=== PATIENT | male | born 1975 | race Caucasian/White ===

== ENCOUNTER 2024-06-27 11:52 | Emergency (ER) | payer SELFPAY ==
[2024-06-27 12:00] VITALS: BP 101/64; PULSE 97; RESP 20; TEMP 36.8; O2SAT 97; BMI 23.6
--- NOTE | 2024-06-27 12:06 | ED_ITS ---
HPI - Alcohol 2 General: Chief Complaint: Alcohol Stated Complaint: AMS, ETOH Time Seen by Provider: 06/27/24 11:54 Source: patient and EMS Mode of arrival: EMS History of Present Illness: 48-year-old male presents here with into xication states he drank half a pint of turkey honey he states he also had multiple shooters as well. Patient per EMS and had some confusion he is answering my questions appropriately here he is ambulatory but is intoxicated. No other complaints at this time Associated symptoms: Deny abdominal pain, nausea or vomiting Review of Systems 2 Const: Denies: fever(s), chills, body aches or change in appetite ENMT: Denies: throat pain or dental pain Card: Denies: chest pain Resp: Denies: dyspnea GI: Denies: abdominal pain, nausea, vomiting or diarrhea Musc: Denies: neck pain or back pain Skin/Breast: Denies: rash Neuro: Denies: headache(s) Physical Exam 2 Const: COMMON NORMALS: no acute distress and patient oriented x3 OTHER: intoxicated HENMT: COMMON NORMALS: normocephalic and atraumatic HEAD & SCALP: n ormocephalic and atraumatic Eye: COMMON NORMALS: Equal, round and reactive pupils present and EOMs intact bilaterally PUPIL: Yes Equal, round and reactive pupils present Neck/C-Spine: COMMON NORMALS: full ROM and supple Chest: COMMONS NORMALS: normal inspection of the chest and normal palpation of entire chest wall Resp: COMMON NORMALS: normal respiratory effort, No retractions, No use of accessory muscles and clear to auscultation bilaterally AUSCULTATION: clear to auscultation bilaterally Cardio: COMMON NORMALS: regular rate, regular rhythm and No murmurs present (Cardio) RATE: regular rate RHYTHM: regular rhythm GI: COMMON NORMALS: Normal to inspection, nondistended, normoactive bowel sounds present, Soft to palpation, non-tender and no masses PALPATION: Yes Soft to palpation Extremity: COMMON NORMALS: normal to inspection and full ROM Neuro: COMMON NORMALS: patient oriented x3, moves all extremities and no focal motor deficits Psych: COMMON NORMALS: mental status grossly normal, Normal thought process present and cooperative THOUGHT PROCESS: Normal thought process present Skin: COMMON NORMALS: no rashes or lesions noted and no wounds GENERAL SKIN EXAM: no rashes or lesions noted Course 2 Vital Signs: Vital signs: Vital Signs Temperature 98.3 F 06/27/24 12:00 Pulse Rate 97 06/27/24 12:00 Respiratory Rate 20 H 06/27/24 12:00 Blood Pressure 101/71 06/27/24 12:59 Pulse Oximetry 100 06/27/24 12:59 Oxygen Delivery Me thod Room Air 06/27/24 12:59 MDM - Alcohol Medical Decision Making Patient presents with alcohol intoxication he is observed for 3 hours he is now is awake and alert and able ambulate on his own he has no psychiatric complaints he is stable for discharge at this time. Medical Records I reviewed the patient's medical records. Lab Data I reviewed the patient's lab results. 06/27/24 12:12 06/27/24 12:12 Laboratory Results WBC 6.76 10^3/uL (3.29-11.43) 06/27/24 12:12 RBC 4.64 10^6/uL (3.85-5.65) 06/27/24 12:12 Hgb 15.00 g/dL (11.27-16.99) 06/27/24 12:12 Hct 44.3 % (37-53) 06/27/24 12:12 MCV 95.5 fl (82-101) 06/27/24 12:12 MCH 32.3 pg (27-33) 06/27/24 12:12 MCHC 33.9 g/dL (30-55) 06/27/24 12:12 RDW 12.3 % (12.1-15.1) 06/27/24 12:12 Plt Count 171 10^3/cmm (157-399) 06/27/24 12:12 MPV 10.6 fL (7.4-10.4) H 06/27/24 12:12 Neut % (Auto) 58.7 % 06/27/24 12:12 Lymph % (Auto) 27.7 % 06/27/24 12:12 Clinch % (Auto) 7.7 % 06/27/24 12:12 Eos % (Auto) 5.2 % 06/27/24 12:12 Baso % (Auto) 0.6 % 06/27/24 12:12 Neut # (Auto) 3.97 10^3/uL (1.8-7.7) 06/27/24 12:12 Lymph # (Auto) 1.9 10^3/uL (0.8-4.8) 06/27/24 12:12 Clinch # (Auto) 0.5 10^3/uL (0.2-0.9) 06/27/24 12:12 Eos # (Auto) 0.4 10^3/uL (0.0-0.8) 06/27/24 12:12 Baso # (Auto) 0.0 10^3/uL (0.0-0.1) 06/27/24 12:12 Nucleated RBC % (auto) 0 % 06/27/24 12:12 Nucleated RBCs # 0.0 /100WBC 06/27/24 12:12 Sodium 144 mmol/L (136-145) 06/27/24 12:12 Potassium 3.2 mmol/L (3.5-5.1) L 06/27/24 12:12 Chloride 107 mmol/L (98-107) 06/27/24 12:12 Carbon Dioxide 25 mmol/L (22-29) 06/27/24 12:12 Anion Gap 15.2 (5-19) 06/27/24 12:12 BUN 10 mg/dL (6-20) 06/27/24 12:12 Creatinine 0.9 mg/dL (0.7-1.2) 06/27/24 12:12 GFR Calculation 90.1 mL/min (90-130) 06/27/24 12:12 Glucose 80 mg/dL (65-115) 06/27/24 12:12 Calculated Osmolality 296 mOsm/kg (285-295) H 06/27/24 12:12 Calcium 8.7 mg/dL (8.5-10.5) 06/27/24 12:12 Total Bilirubin 0.5 mg/dL (0.15-1.2) 06/27/24 12:12 AST 22 U/L (0-40) 06/27/24 12:12 ALT 18 U/L (0-41) 06/27/24 12:12 Alkaline Phosphatase 68 U/L (40-130) 06/27/24 12:12 Total Protein 6.6 g/dL (6.6-8.7) 06/27/24 12:12 Albumin 4.3 g/dL (3.5-5.2) 06/27/24 12:12 Globulin 2.3 g/dL (1.3-4.6) 06/27/24 12:12 Ethyl Alcohol 196 mg/dL (0-10) H 06/27/24 12:12 No radiology studies performed this visit Discharge Plan Discharge Patient Disposition: Home Clinical Impression: Alcoholic intoxication Condition: Stable Discharge Orders: Discharge ED (Routine); Ordered 06/27/24 Ordered By: Jihan Phelan Discharge Diet: Advance as tolerated Discharge Activity: Resume usual activity Patient Instructions: Alcohol Intoxication (ED) Coding Level of Care Code ED [employer] for Vikash Wooten
[2024-06-27] MEDS: sodium chloride 0.9% 1,000 ML 999 ML IV (12:30)
[2024-06-27 12:41] LABS: Basophils % 0.6 %; Eosinophils # 0.4 10^3/uL (0.0-0.8); Eosinophils % 5.2 %; Hematocrit 44.3 % (37-53); Lymphocytes # 1.9 10^3/uL (0.8-4.8); Lymphocytes % 27.7 %; Mean Corpuscular HGB Conc 33.9 g/dL (30-55); Mean Corpuscular Hemoglobin 32.3 pg (27-33); Mean Corpuscular Volume 95.5 fl (82-101); Mean Platelet Volume 10.6 fL (7.4-10.4); Monocytes # 0.5 10^3/uL (0.2-0.9); Monocytes % 7.7 %; Neutrophils # 3.97 10^3/uL (1.8-7.7); Neutrophils % 58.7 %; Nucleated Red Blood Cells % 0 %; Platelet Count 171 10^3/cmm (157-399); Red Blood Count 4.64 10^6/uL (3.85-5.65); Red Cell Distribution Width 12.3 % (12.1-15.1); White Blood Count 6.76 10^3/uL (3.29-11.43)
--- NOTE | 2024-06-27 12:57 | PC.NURSE ---
PATIENT NEEDING TO URINATE. PATIENT GIVEN URINAL. PATIENT THEN PROCEEDED TO URINATE ALL OVER THE FLOOR. PATIENT REDIRECTED THAT HE WAS HOLDING ON TO HIS SHIRT INSTEAD OF PENIS IN CONFUSION. PATIENT THEN STUMBLED, HIT HEAD AGAINST GLASS DOOR AND STUMBLED TO MOVE TO BED. PATIENT TOLD TO GET INTO BED DUE TO STUMBLING.
[2024-06-27 12:58] LABS: Alanine Aminotransferase 18 U/L (0-41); Albumin Level 4.3 g/dL (3.5-5.2); Alcohol Level 196 mg/dL (0-10); Alkaline Phosphatase 68 U/L (40-130); Anion Gap 15.2 (5-19); Aspartate Amino Transferase 22 U/L (0-40); Blood Urea Nitrogen 10 mg/dL (6-20); Calcium 8.7 mg/dL (8.5-10.5); Carbon Dioxide 25 mmol/L (22-29); Chloride 107 mmol/L (98-107); Creatinine Clr Calc Pharmacy 101.4414; Globulin 2.3 g/dL (1.3-4.6); Glomerular Filtration Rate 90.1 mL/min (90-130); Glucose 80 mg/dL (65-115); Osmolality Calculated 296 mOsm/kg (285-295); Potassium 3.2 mmol/L (3.5-5.1); Sodium 144 mmol/L (136-145); Total Bilirubin 0.5 mg/dL (0.15-1.2); Total Protein 6.6 g/dL (6.6-8.7)
[2024-06-27 12:59] VITALS: BP 101/71; O2SAT 100
== END 2024-06-27 15:32 | disposition home or self-care (01) ==
PROVIDERS: Emergency Provider Emergency Medicine
DX: F10.129 Alcohol abuse with intoxication, unspecified (principal); Y90.6 Blood alcohol level of 120-199 mg/100 ml
CPT/HCPCS: 36415; 80053; 80307; 85025; 96374; 99284; J3411; J7030